=== PATIENT | male | born 1960 | race African-American/Black ===

== ENCOUNTER 2018-12-27 10:57 | Inpatient (IN) | payer OTHER, SELFPAY ==
[2018-12-27] MEDS ORDERED: Midazolam HCl 2 mg/2 ml Vial ONE (10:58)
[2018-12-27] MEDS ORDERED: Propofol 1,000 MG/100 ML VIAL IV ONE (11:01)
[2018-12-27 11:08] LABS: Mean Corpuscular HGB CONC 31.1 g/dL (32.0-36.0); Mean Corpuscular Hemoglobin 29.7 pg (27.0-31.0); Mean Corpuscular Volume 95.6 fL (78.0-98.0); Mean Platelet Volume 7.9 fL (7.4-10.4); Platelet Count 286 thou/uL (130-400); Red Blood Cell (RBC) Count 5.03 mill/uL (4.70-6.10); White Blood Cell (WBC) Count 7.6 thou/uL (4.8-10.8)
[2018-12-27] MEDS ORDERED: Fentanyl 20 mcg/ml (100 ml CADD) IV PRN (11:13)
[2018-12-27 11:16] LABS: PTT 23.7 SEC (22.9-36.1)
[2018-12-27 11:18] LABS: Actual Bicarbonate (HCO3a) 13.8 mEq/L (22-28); Analyzer IN Cardio ER; Base Excess (BEa) -14.4 mEq/L (-2.0 to +3.0); CO2 Tension 40.5 mmHg (35.0-45.0); Calcium, Ionized 1.16 mmol/L (1.12-1.30); Carboxyhemoglobin (COHb) 2.4 gm% (0.0-3.0); Hemoglobin (Hb) 14.7 g/dL (14.0-18.0); O2 Tension (PaO2) 214.3 mmHg (80.0-100.0); Potassium - ABG Lab 4.54 mmol/L (3.70-5.30)
[2018-12-27] MEDS ORDERED: Fentanyl 100 MCG/2 ML VIAL ONE ×2 (11:18→11:39)
[2018-12-27 11:19] LABS: ALV-art Gradient 91.575 (0-20); Puncture Site RRA; pH, Arterial 7.15 (7.35-7.45)
--- NOTE | 2018-12-27 11:22 | RAD ---
Portable supine chest: INDICATIONS: Chest pain. Possible overdose. Altered mental status. COMPARISON: 08/28/2016 ET tube has tip at the chas. NG tube appears adequately positioned, tip not visualized. Lung murguia appear well aerated and clear. Heart size normal. Aortic calcification again noted. Osseous structures appear intact. IMPRESSION: No acute lung process.
[2018-12-27 11:25] LABS: Calcium 9.8 mg/dL (7.8-10.44)
[2018-12-27 11:26] LABS: Globulin 4.7 g/dL (2.4-3.5); Glucose 199 mg/dL (70-105); Protein, Total 9.3 g/dL (6.0-8.3)
[2018-12-27 11:27] LABS: Anion Gap 25 mmol/L (10-20); Carbon Dioxide 16 mmol/L (22-29)
[2018-12-27 11:28] LABS: Bilirubin, Total 0.4 mg/dL (0.2-1.2)
[2018-12-27 11:29] LABS: Alcohol Less than 10 mg/dL (Less than 10); Alkaline Phosphatase 79 U/L (40-150); Calc. Creatinine Clearance 0 mL/min (70-130); Estimated GFR-MDRD 63
[2018-12-27 11:30] LABS: BUN (Urea Nitrogen) 17 mg/dL (8.4-25.7)
[2018-12-27 11:31] LABS: AST (SGOT) 50 U/L (5-34)
[2018-12-27 11:32] LABS: ALT (SGPT) 38 U/L (8-55); Lipase 68 U/L (8-78)
[2018-12-27] MEDS ORDERED: Succinylcholine Chloride 20 MG/ML 10 ml SYRINGE FS ONE (11:32)
[2018-12-27 11:33] LABS: Bilirubin Negative (Negative); Blood, Urine Moderate (Negative); Clarity CLOUDY (Clear); Glucose, Urine (Dipstick) 100 mg/dL (Negative); Leukocyte Negative (Negative); Nitrite Negative (Negative); Protein, Urine (Dipstick) 100 mg/dL (Neg-Trace); Specific Gravity, Urine 1.012 (1.002-1.036); Urobilinogen 0.2 mg/dL (0.2-1.0); pH, Urine 5.5 (5.0-9.0)
[2018-12-27 11:34] LABS: Albumin 4.6 g/dL (3.5-5.0); Chloride 102 mmol/L (98-107); Potassium 5.2 mmol/L (3.5-5.1); Sodium 138 mmol/L (136-145)
[2018-12-27 11:35] LABS: WBC/HPF 0-3 HPF (0-3)
[2018-12-27 11:36] LABS: Pathc Cast-AUWi Flag 3.94 (0-2.49)
[2018-12-27 11:43] LABS: Acetaminophen Less than 6.0 mcg/mL (10.0-30.0); Salicylate Less than 8.0 mg/dL (15.0-30.0)
[2018-12-27] MEDS ORDERED: Vancomycin HCl 1 GM in Premix Bag 1 BAG IVPB SCH ×2 (11:45→16:00)
[2018-12-27 11:46] LABS: Amphetamine Not Detected (NotDetected); Barbiturates Screen Not Detected (NotDetected); Benzodiazepine Screen Not Detected (NotDetected); Cocaine Metabolite Screen Detected (NotDetected); Medtox Control Line Valid? VALID (VALID); Medtox Reader # READER 4; Methadone Not Detected (NotDetected); Methamphetamine Not Detected (NotDetected); Opiate Screen Not Detected (NotDetected); Oxycodone Screen Not Detected (NotDetected); Phencyclidine (PCP) Not Detected (NotDetected); THC/Cannabinoid Screen Detected (NotDetected); Tricyclic Screen Not Detected (NotDetected)
[2018-12-27 11:50] LABS: Band 2 % (5-11); Eosinophils 7 % (0-10); Lymphocytes 65 % (21-51); MDiff Complete? YES; Monocytes 9 % (0-10); Neutrophil 16 % (42-75); RBC Morphology Normal; Reactive Lymphocytes 1 % (0-10)
[2018-12-27 11:51] LABS: Bacteria/HPF 2+ HPF (None Seen); Hyaline Casts/LPF 0-3 HYALINE CAST LPF (0-3 Hyaline); Manual Microscopic Reviewed? No Path Casts Seen; RBC/HPF 0-3 HPF (0-3); Renal Epithelial None Seen HPF (0-3); Sperm/HPF 1+ HPF (None Seen); Transitional Epithelial NONE SEEN HPF (0-3)
[2018-12-27] MEDS ORDERED: Ondansetron ODT 4 MG TAB SL PRN (12:00)
[2018-12-27] MEDS ORDERED: Ondansetron PF 4 MG/2 ML Vial IVP PRN ×2 (12:00→14:51)
[2018-12-27] MEDS ORDERED: Sodium Chloride 0.9% 1,000 ML IV SCH (12:00)
[2018-12-27] MEDS ORDERED: cefTRIAXone\\ROCEPHIN 2 GM VIAL ONE (12:03)
--- NOTE | 2018-12-27 12:12 | CT ---
CT CERVICAL SPINE: Date: 12/27/18 Multiple axial tomograms obtained through the cervical spine with multiplanar reconstruction. INDICATION: Possible overdose. Mental status change. FINDINGS: The cervical vertebra show normal height. Moderate degenerative changes are present. Loss of disc spa ce is seen at C5-6 and C6-7 with anterior wedging and anterior osteophytes at both of these levels. T here is a slight posterolisthesis at C5-6. Posterior disc bulge and spondylosis abut the cord at C5-6 and C6-7 levels. Foraminal encroachment on the left due to facet hypertrophy and disc is noted. Ther e is a small air bubble in the foramen on the left at this level secondary to disc desiccation and va cuum phenomenon. Right foraminal stenosis at C5-6. No acute fracture identified. IMPRESSION: Degenerative changes of the cervical spine. No acute fracture identified. POS: ARCENIO
--- NOTE | 2018-12-27 12:17 | CT ---
CT head without contrast: Multiple axial tomograms obtained through the head without IV enhancement. INDICATIONS: Mental status change COMPARISON: 08/29/2016 FINDINGS: Ventricles have normal size and position. Areas of encephalomalacia involving the left temporal lobe and left frontal lobe are seen. This is se condary to the previously described parenchymal hematomas in these regions noted on the prior study. There is a rounded hyperdensity in the suprasellar region measuring 8 to 9 mm. This lesion appears to be present on prior exam but is more dense today. It did not enhance on the CTA study from 2017. Visualized sinuses and mastoids appear clear. Bony calvarium appears unremarkable. IMPRESSION: 1. No acute abnormality identified 2. 8 mm density in the suprasellar region. Considerations include thrombosed calcified aneurysm and m eningioma. Recommend further evaluation with MRI brain with and without contrast. 3. Areas of encephalomalacia from prior parenchyma hematomas
--- NOTE | 2018-12-27 13:27 | RAD ---
Chest AP view INDICATION: Central line placement COMPARISON: Prior exam dated December 27, 2018 11:07 AM FINDINGS: Tubes and Lines: There is a new left IJ central venous catheter that projects at the level of the SV C. ET tube and gastric catheter unchanged.. Lungs:No acute airspace opacity is evident.. Cardiac silhouette pulmonary vasculature:Normal.. Pleural spaces: Clear. No pneumothorax. Upper abdomen:No abnormality seen. Osseous structures: No acute abnormality. IMPRESSION: New left IJ central venous catheter with tip projecting in the region of the SVC. ET tube and gastric catheter are unchanged. No pneumothorax.
[2018-12-27] MEDS ORDERED: fentaNYL Citrate/PF 2,000 MCG in Sodium Chloride 0.9% 60 ML IV SCH (14:22)
[2018-12-27] MEDS ORDERED: DISCONTINUE PREVIOUS NARCOTIC PAIN MEDICATIONS AND BENZODIAZEPINES FS SCH (14:22)
[2018-12-27] MEDS ORDERED: Fentanyl BOLUS 250 ML IVPB PRN (14:22)
[2018-12-27] MEDS ORDERED: Propofol BOLUS 1,000 MG/100 ML VIAL IV PRN (14:22)
[2018-12-27] MEDS ORDERED: Acetaminophen 650 MG Suppository PR PRN (14:51)
[2018-12-27 15:03] LABS: Lactic Acid 1.3 mmol/L (0.5-2.2)
--- NOTE | 2018-12-27 15:24 | HP ---
PRIMARY CARE PROVIDER: None. CHIEF COMPLAINT: Altered mental status. HISTORY OF PRESENT ILLNESS: Mr. Armas is a 58-year-old gentleman, who was seen at [facility] on December 27, 2018. The patient is currently intubated and mechanically ventilated, unable to provide any history. Collateral history was obtained from discussion with emergency room physician and review of medical records. Mr. Armas was dropped off by a car at a construction site. The patient was aggressive and combative at the site. It is suspected that he may have overdosed on drugs. EMS was called. The patient was still combative and suddenly collapsed and began convulsing. He received Ativan with limited effect. The patient then received of ketamine intramuscularly and brought to the emergency room. In the emergency room, the patient was intubated for airway protection. REVIEW OF SYSTEMS: Could not be completed secondary to the patient's intubated status. PAST MEDICAL HISTORY: Unknown. SURGICAL HISTORY: Unknown. SOCIAL HISTORY: Unknown. FAMILY HISTORY: Unknown. KNOWN ALLERGIES: Unknown. CURRENT MEDICATIONS: Unable to obtain. PHYSICAL EXAMINATION: GENERAL: On examination, Mr. Armas is intubated and mechanically ventilated. VITAL SIGNS: Blood pressure is 118/82, pulse 56, respiratory rate 22, and oxygen saturation 93% on ventilator. Critical temperature is 96.4. When he presented to the emergency room, he had blood pressure of 209/153 and pulse of 145 and respiratory rate of 28. EYES: No scleral icterus, no conjunctival pallor, pinpoint pupils bilaterally. ENT: Moist mucosal membranes, endotracheal tube in place. NECK: No cervical lymphadenopathy. RESPIRATORY: Accessory muscles of breathing are not active. Chest wall movements are symmetric bilaterally. LUNGS: Clear to auscultation without wheeze, rhonchi, or crepitations. CARDIOVASCULAR: S1 and S2 are heard, regular. Peripheral pulses palpable. NEUROLOGIC: Full neurologic examination not possible secondary to the patient's noncooperation. Pupils are pinpoint bilaterally. No facial droop. Deep tendon reflexes are brisk, plantars downgoing bilaterally. MUSCULOSKELETAL: No spontaneous limb movements. SKIN: No rashes or subcutaneous nodules. LYMPHATIC: No cervical lymphadenopathy. PSYCHIATRIC: Unable to assess mood, affect, or orientation to person, place, or time. LABORATORY DATA: Mr. Armas's labs and investigations were reviewed. Electrocardiogram shows sinus tachycardia, no ST changes to suggest an acute coronary syndrome. Chest x-ray does not show any pulmonary infiltrates. Noncontrast CT scan of the brain showed 8 mm density in the suprasellar region, considerations including thrombosed calcified aneurysm and meningioma. Radiologist recommends further evaluation with MRI of brain with and without contrast. No acute abnormality was identified. He has areas of encephalomalacia from prior parenchymal hematomas. He also had CT scan of the cervical spine, which did not show any acute fracture. He had degenerative changes of the cervical spine. He has normal white count, with relative lymphocytosis of 65%, normal hemoglobin, normal platelet count, INR 1.0, normal sodium, elevated potassium of 5.2, decreased carbon dioxide of 16, elevated anion gap of 25, elevated lactic acid level of 13, elevated creatinine of 1.40, normal blood urea nitrogen, elevated AST of 50, elevated CK of 326, normal total bilirubin, normal ALT, normal alkaline phosphatase, and normal lipase of 68. Urinalysis is negative for nitrite and leukocyte esterase. Urine toxicology screen is positive for cocaine metabolites and cannabinoids. Arterial blood gases show pH of 7.15, PO2 of 214.3, and pCO2 of 40.5. ASSESSMENT AND PLAN: Mr. Armas is a 58-year-old gentleman, who was seen at [facility] on Dec 27 2018. His problem list includes: 1. Acute metabolic encephalopathy: Mr. Armas is presenting with acute encephalopathy, likely secondary to drug overdose. Other etiologies cannot be ruled out at this time, including infectious component. He did receive antibiotics in the emergency room, which I will continue for now. We will follow blood cultures. The patient will be admitted to critical care unit for further management. 2. Acute respiratory failure: The patient is currently intubated and mechanically ventilated, will be managed in the critical care unit. 3. Hyperkalemia: Mild hyperkalemia. Recheck potassium level. 4. Lactic acidosis: Likely secondary to seizure. Recheck lactic acid level. 5. Rhabdomyolysis: Mild elevation of CK, recheck CK level after IV hydration. 6. Anion gap metabolic acidosis: Secondary to elevated lactate level. LEVEL OF RISK: Moderate. LEVEL OF COMPLEXITY: Moderate. Job ID: [id number]
[2018-12-27] MEDS ORDERED: Lorazepam 2 MG/ML VIAL ONE (16:03)
[2018-12-27 16:07] LABS: Actual Bicarbonate (HCO3a) 19.2 mEq/L (22-28); Base Excess (BEa) -5.9 mEq/L (-2.0 to +3.0); CO2 Tension 36.8 mmHg (35.0-45.0); Calcium, Ionized 1.09 mmol/L (1.12-1.30); Hemoglobin (Hb) 12.8 g/dL (14.0-18.0); O2 Tension (PaO2) 104.5 mmHg (80.0-100.0); Potassium - ABG Lab 3.84 mmol/L (3.70-5.30); pH, Arterial 7.34 (7.35-7.45)
[2018-12-27 16:09] LABS: Puncture Site RBA
[2018-12-27] MEDS: Sodium Chloride 0.9% 1,000 ML IV SCH (16:14)
[2018-12-27] MEDS ORDERED: Lorazepam 2 MG/ML VIAL SLOW IVP SCH (16:30)
--- NOTE | 2018-12-27 16:57 | CON ---
DATE OF CONSULTATION: HISTORY OF PRESENT ILLNESS: Mo Armas is a 58-year-old gentleman with history of substance abuse, presented to the ER, encephalopathic, agitated, encephalopathic mental status change. He was intoxicated, aggressive behavior, come back to get some Ativan, took out his IV. He was given ketamine 100 mg. His blood pressure was elevated at 260/ 110, heart rate 160. He is on a non-rebreather, sats 100%. His respiratory rate is 28. Questionable seizure activity. Apparently, he was intubated, sedated, transferred to the ICU. He has a sister, not here. His initial drug screen showed presence of cocaine, cannabinoids. The patient has previous history of substance abuse. In fact, he was in the hospital here in 2017 when he sustained altered mental status, had apparently fallen down, hit the head 8 feet above ground. He had history of alcohol abuse at that time. He was started on seizure activity. Otherwise, at this stage, I would not get any history. Medication at home, Tylenol. PAST SURGICAL HISTORY: Apparently, none that we were able to obtain. ALLERGIES: NONE. PAST MEDICAL HISTORY: Previous records pertinent for no other medical problems to speak off. PHYSICAL EXAMINATION: Intubated in the vent, sedated Diprivan, fentanyl. VITAL SIGNS: Pulse 53, blood pressure 110/76, sats are 96% on present settings, rate is set at 22. CHEST: No wheezing, crackles. CARDIAC: Normal S1, S2. No gallops. ABDOMEN: No masses. DIAGNOSTIC DATA: White count 7000. Lytes are normal. Platelet count is normal. PO2 was 214, pCO2 of 40, pH 7.15, rate of 18. His lactic acid was 13, otherwise creatinine 1.40, albumin is normal. His chest x-ray showed presence of central line without any obvious new infiltrates. ET tube in adequate position. IMPRESSION: 1. Status post metabolic encephalopathy. Polysubstance drug abuse. 2. History of previous alcohol abuse, substance abuse, encephalopathy, azotemia. PLAN: Continue aggressive hydration. He was started on empiric antibiotics, I am not so sure why he was given vancomycin. We will probably in the next 24 to 48 hours. His alcohol level was otherwise unremarkable, try and get information from family as they arrive. Critical care time, 45 minutes. Job ID: [id number]
[2018-12-27] MEDS: Propofol 1,000 MG/100 ML VIAL IV PRN (17:48)
[2018-12-27] MEDS: ALPRAZolam 0.5 MG TAB PO SCH (21:13)
[2018-12-28] MEDS: Sodium Chloride 0.9% 1,000 ML IV SCH ×3 (00:01→18:30)
[2018-12-28] MEDS: Propofol 1,000 MG/100 ML VIAL IV PRN (02:13)
[2018-12-28 04:37] LABS: Anion Gap 10 mmol/L (10-20); BUN (Urea Nitrogen) 10 mg/dL (8.4-25.7); Calc. Creatinine Clearance 83 mL/min (70-130); Calcium 8.3 mg/dL (7.8-10.44); Carbon Dioxide 23 mmol/L (22-29); Chloride 114 mmol/L (98-107); Estimated GFR-MDRD Greater than 90; Glucose 86 mg/dL (70-105); Potassium 3.6 mmol/L (3.5-5.1); Sodium 143 mmol/L (136-145)
[2018-12-28 04:39] LABS: #Eosinphils 0.2 thou/uL (0.0-0.7); #Monocytes 0.7 thou/uL (0.11-0.59); %Basophils 0.6 % (0.0-1.0); %Eosinophils 3.5 % (0.0-10.0); %Lymphocytes 43.1 % (21.0-51.0); %Monocytes 9.7 % (0.0-10.0); %Neutrophils 43.1 % (42.0-75.0); Mean Corpuscular HGB CONC 33.5 g/dL (32.0-36.0); Mean Corpuscular Hemoglobin 31.1 pg (27.0-31.0); Mean Corpuscular Volume 92.8 fL (78.0-98.0); Mean Platelet Volume 7.4 fL (7.4-10.4); Platelet Count 203 thou/uL (130-400); RBC Distribution Width 11.9 % (11.5-14.5); Red Blood Cell (RBC) Count 3.85 mill/uL (4.70-6.10); White Blood Cell (WBC) Count 6.9 thou/uL (4.8-10.8)
[2018-12-28 06:31] VITALS: BP 111/75
[2018-12-28 06:47] LABS: Base Excess (BEa) -1.5 mEq/L (-2.0 to +3.0); Calcium, Ionized 1.17 mmol/L (1.12-1.30); Carboxyhemoglobin (COHb) 1.2 gm% (0.0-3.0); O2 Tension (PaO2) 66.5 mmHg (80.0-100.0); Potassium - ABG Lab 3.57 mmol/L (3.70-5.30); pH, Arterial 7.48 (7.35-7.45)
--- NOTE | 2018-12-28 07:05 | RAD ---
CHEST ONE VIEW: INDICATIONS: Daily CCU examination. COMPARISON: Prior exam dated 12/27/2018. FINDINGS: Left IJ central venous catheter, ET tube, and gastric catheter are unchanged. The lungs are clear. No pleural effusion or pneumothorax is evident. Heart size is normal. IMPRESSION: Stable tubes and lines. No acute cardiopulmonary abnormality. POS: BH
[2018-12-28 07:46] LABS: Puncture Site RRA
[2018-12-28] MEDS: ALPRAZolam 0.5 MG TAB PO SCH (08:06)
[2018-12-28] MEDS ORDERED: ALPRAZolam 0.5 MG TAB PO PRN (08:17)
--- NOTE | 2018-12-28 10:00 | PRG ---
DATE OF SERVICE: 12/28/2018 TIME SPENT: 35 minutes of critical time. SUBJECTIVE: The patient remains intubated on mechanical ventilation. He will wake up, try to sit up in bed. OBJECTIVE: VITAL SIGNS: Temperature 99.7, pulse 46, blood pressure 111/74, O2 sat 99%, currently on propofol and fentanyl. Intake for the last 24 hours 1890, output 3240. HEENT: Unremarkable. NECK: No JVD. CHEST: Clear to auscultation. CARDIAC: S1 and S2 regular. ABDOMEN: Soft. EXTREMITIES: No edema. IMAGING: His chest x-ray is clear. LABORATORY DATA: Sodium 143, potassium 3.6, chloride 114, CO2 of 23, BUN 10, creatinine 0.9, glucose 86, lactate down to 1.3. CPK 326. PH 7.48, pCO2 of 29, PO2 of 66 on SIMV rate 22, tidal volume 450, PEEP 5, pressure support 10, FiO2 40%. White blood cell count 6.9, hematocrit 35.7, and platelet count 203. ASSESSMENT: 1. Cocaine toxicity. 2. Acute respiratory failure, requiring mechanical ventilation. 3. Resolved metabolic acidosis. PLAN: The patient will be extubated. His antibiotics were stopped yesterday. Continue hydration. Increase activity as tolerated. Start enoxaparin for DVT prophylaxis. Job ID: [id number]
[2018-12-28] MEDS: Enoxaparin Sodium 40 MG/0.4 ML SYRINGE SC SCH (10:32)
[2018-12-28] MEDS: Famotidine 20 MG TAB PO SCH ×2 (10:33→20:48)
--- NOTE | 2018-12-28 21:17 | PDOC.PN ---
- Subjective Encounter Start Date: 12/28/18 Encounter Start Time: 13:00 Doing better overall. Extubated. Still stating he did not take any cocaine. Admits to smoking marijuana. - Objective Vital Signs & Weight: Vital Signs (12 hours) Temp Pulse Ox 12/28/18 20:00 100.3 F H 96 12/28/18 16:00 100.7 F H 95 12/28/18 12:00 100.2 F H 95 Weight Weight 154 lb 8.705 oz Most Recent Monitor Data Heart Rate from ECG 57 NIBP 111/59 NIBP BP-Mean 76 Respiration from ECG 16 SpO2 100 I&O: 12/27/18 12/28/18 12/29/18 06:59 06:59 06:59 Intake Total 1890 1924.0 Output Total 3240 1825 Balance -1350 99.0 Result Diagrams: 12/28/18 03:50 12/28/18 03:50 Phys Exam - Physical Examination Constitutional: NAD Respiratory: no wheezing, no rales, no rhonchi, clear to auscultation bilateral Cardiovascular: RRR, no significant murmur Gastrointestinal: soft, non-tender, no distention Musculoskeletal: no edema Dx/Plan (1) Overdose Code(s): T50.901A - POISONING BY UNSP DRUG/MEDS/BIOL SUBST, ACCIDENTAL, INIT Status: Acute (2) Cocaine abuse Code(s): F14.10 - COCAINE ABUSE, UNCOMPLICATED Status: Acute (3) Marijuana abuse Code(s): F12.10 - CANNABIS ABUSE, UNCOMPLICATED Status: Acute (4) Toxic encephalopathy Code(s): G92 - TOXIC ENCEPHALOPATHY Status: Acute - Plan * Extubated. * Getting up in chair. * ELIANA Diaz. * Clears. * If all goes well with that, transfer to floor.
[2018-12-29] MEDS: Sodium Chloride 0.9% 1,000 ML IV SCH (04:36)
[2018-12-29 04:56] VITALS: BMI 24.3
[2018-12-29 06:23] LABS: #Basophils 0.1 thou/uL (0.0-0.2); #Eosinphils 0.3 thou/uL (0.0-0.7); #Lymphocytes 2.6 thou/uL (1.20-3.40); #Monocytes 0.8 thou/uL (0.11-0.59); #Neutrophils 3.4 thou/uL (1.40-6.50); %Basophils 0.8 % (0.0-1.0); %Eosinophils 4.7 % (0.0-10.0); %Lymphocytes 36.4 % (21.0-51.0); %Neutrophils 47.1 % (42.0-75.0); Hemoglobin 12.7 g/dL (14.0-18.0); Mean Corpuscular HGB CONC 32.4 g/dL (32.0-36.0); Mean Corpuscular Hemoglobin 30.4 pg (27.0-31.0); Mean Corpuscular Volume 93.7 fL (78.0-98.0); Mean Platelet Volume 7.5 fL (7.4-10.4); Platelet Count 191 thou/uL (130-400); RBC Distribution Width 12.1 % (11.5-14.5); Red Blood Cell (RBC) Count 4.17 mill/uL (4.70-6.10); White Blood Cell (WBC) Count 7.2 thou/uL (4.8-10.8)
[2018-12-29 06:46] LABS: Anion Gap 12 mmol/L (10-20); BUN (Urea Nitrogen) 7 mg/dL (8.4-25.7); Calc. Creatinine Clearance 89 mL/min (70-130); Calcium 8.8 mg/dL (7.8-10.44); Carbon Dioxide 24 mmol/L (22-29); Chloride 109 mmol/L (98-107); Estimated GFR-MDRD Greater than 90; Glucose 92 mg/dL (70-105); Potassium 3.5 mmol/L (3.5-5.1); Sodium 141 mmol/L (136-145)
--- NOTE | 2018-12-29 08:16 | RAD ---
CHEST 1 VIEW: Date: 12/29/18 INDICATION: Intubation. COMPARISON: Prior exam dated 12/28/18. IMPRESSION: The patient has been extubated with removal of the gastric catheter and left-sided IJ central venous catheter. Heart size remains mildly prominent. There is mild interstitial prominence involving the mayda ng which is stable, likely reflecting underlying interstitial fibrosis or edema. No sharon pleural eff usion is evident. No consolidation is noted. No pneumothorax is evident. IMPRESSION: 1. Interval extubation and removal of gastric catheter and left IJ central venous catheter. 2. Persistent interstitial opacities may reflect underlying mild interstitial edema with associated mild cardiomegaly. Continued follow-up recommended. 3. No pleural effusions, air space consolidation, or pneumothorax demonstrated. POS: BH
[2018-12-29] MEDS: Enoxaparin Sodium 40 MG/0.4 ML SYRINGE SC SCH (08:49)
[2018-12-29] MEDS: Famotidine 20 MG TAB PO SCH (08:49)
[2018-12-29 12:34] VITALS: TEMP 99.3
--- NOTE | 2018-12-29 13:23 | PRG ---
DATE OF SERVICE: 12/29/2018 SUBJECTIVE: Mr. Armas is sitting up in a chair, eating. OBJECTIVE: GENERAL: He is in no distress. VITAL SIGNS: Heart rate 57, blood pressure 145/95, respiratory rate is 19, oximetry is 99% on room air. HEAD AND NECK: Exam is unremarkable. LUNGS: Clear. HEART: Regular rhythm. ABDOMEN: Soft. EXTREMITIES: Without asymmetry or edema. LABORATORY DATA: Sodium 141, potassium 3.5, chloride 109, bicarb 24, BUN 7, and creatinine 0.9. White count 7.3, hemoglobin 12.7, platelets 191,000. IMPRESSION: Status post drug overdose. He was scheduled to be transferred to the floor yesterday, but there were no beds. In my opinion, he is stable to go home. He could be discharged from the ICU since there are no regular beds. I see no benefit from keeping him in the hospital at this point in time. Job ID: [id number]
--- NOTE | 2018-12-29 19:39 | EKG ---
Test Reason : Blood Pressure : / mmHG Vent. Rate : 112 BPM Atrial Rate : 112 BPM P-R Int : 140 ms QRS Dur : 078 ms QT Int : 342 ms P-R-T Axes : 066 051 049 degrees QTc Int : 466 ms Sinus tachycardia Possible Left atrial enlargement Septal infarct , age undetermined Abnormal ECG Confirmed by JUVENAL CASPER DO ([id number]), graphic editor NIMA MALLOY ([id number] on 12/29/2018 7:37:34 PM Referred By: Confirmed By:JUVENAL CASPER DO
== END 2018-12-29 15:30 | disposition home or self-care (01) | DRG 917 ==
LOC: ERS 10:57 → EDBD 10:57 → CCU 13:42
PROVIDERS: ADMIT Internal Medicine; ATTEND Internal Medicine
PROC: 5A1945Z Respiratory Ventilation, 24-96 Consecutive Hours (ICD-10-PCS; principal; 2018-12-27)
PROC: 0BH17EZ Insertion of Endotracheal Airway into Trachea, Via Natural or Artificial Opening (ICD-10-PCS; 2018-12-27)
DX: T40.5X1A Poisoning by cocaine, accidental (unintentional), initial encounter (principal); G92 Toxic encephalopathy; J96.00 Acute respiratory failure, unspecified whether with hypoxia or hypercapnia; E87.2 Acidosis; M62.82 Rhabdomyolysis; E87.5 Hyperkalemia; F12.10 Cannabis abuse, uncomplicated; F14.10 Cocaine abuse, uncomplicated; Z79.899 Other long term (current) drug therapy
CPT/HCPCS: 31500; 36415; 36556; 51702; 70450; 71045; 72125; 80048; 80053; 80306; 80307; 81003; 81015; 82550; 82805; 83605; 83690; 85025; 85610; 85730; 87040; 87149; 93005; 94002; 94003; 96361; 96365; 96366; 96368; 96374; 96375; J0696; J1650; J2060; J2250; J2704; J3010; J3370; J3490